=== PATIENT | female | born 1940 | race Caucasian/White ===

== ENCOUNTER 2017-08-12 14:33 | Emergency (ER) | payer OTHER ==
[2017-08-12 14:39] VITALS: PULSE 75; RESP 18
--- NOTE | 2017-08-12 14:48 | CPEKG ---
Heart Rate: 72 RR Interval: 833 P-R Interval: 134 QRSD Interval: 80 QT Interval: 432 QTC Interval: 473 P [place]: 57 QRS [place]: 73 T Wave [place]: 46 EKG Severity - NORMAL ECG - EKG Impression: SINUS RHYTHM Electronically Signed By: Junior Gillespie 15-Aug-2017 17:49:43
[2017-08-12] MEDS ORDERED: NS 500 ML IV ONE (14:59)
--- NOTE | 2017-08-12 15:04 | EDPHY ---
HPI/HX/ROS/PE/MDM Narrative: CHIEF COMPLAINT: "Flu-like symptoms" HPI: This patient is a 77 year old female arriving with her family complaining of one week history of flu-like symptoms. Last Thursday or , she developed body aches and productive cough with blood-tinged sputum. Yesterday and today, she has felt lightheaded and experienced chest pressure, dizziness, nausea which have worsened today. She endorses low grade fever Thursday which has since resolved. She has also had difficulty sleeping due to anxiousness, shakiness, and an inability to get comfortable. She generally receives her healthcare at [facility] and vised the urgent care there earlier today. Staff at triage recommended she present to the emergency department for further evaluation. She denies shortness of breath, leg pain or swelling, vomiting, diarrhea, abdominal pain, urinary complaints, or other associated symptoms. She did not receive a flu shot this year. REVIEW OF SYSTEMS: Aside from elements discussed in the HPI, a comprehensive 10-point review of systems was reviewed and is negative. PMH: Bursitis. Diverticulitis. SOCIAL HISTORY: Lives in [place]. Family at bedside. Retired. PHYSICAL EXAM: General:Patient is alert, in no acute distress. ENT:Eyes are normal to inspection. ENT inspection normal. Neck: Normal inspection. Full range of motion. Respiratory:No respiratory distress. Breath sounds normal bilaterally. Cardiovascular: Regular rate and rhythm. Strong peripheral pulses. Normal cap refill. Abdomen:The abdomen is nontender to palpation. There are no peritoneal signs. There are normal bowel sounds. Back: Normal to inspection. No tenderness to palpation. Skin: Normal color. No rash. Warm and dry. Extremities: Normal appearance. Full range of motion. Neuro: Oriented x3. Normal motor function. Normal sensory function. ED Course: 77 year old female presents with one week history of body aches, cough, lightheadedness, and fever. Exam unremarkable, lungs clear to auscultation. IV established. Plan for chest x-ray, EKG, labs including CBC, BMP, Troponin, flu swab. I suspect a disease process such as influenza rather than a cardiac process at this point. Administered 500mL IV NS. Patient is positive for Influenza A. Labs otherwise unremarkable. Troponin negative. Chest x-ray negative for acute processes. 16:45 Reassessed patient, discussed results. Plan to discharge home in good condition. Follow up and return precautions discussed. The patient and her family are comfortable with this plan. MDM: This patient presents with signs and symptoms of influenza, confirmed with flu PCR. There was mention of chest pain, but this seems like a minor component of the patient's presentation and is related to coughing. ECG and troponin are negative. The patient has had symptoms for 4-5 days so is outside window for antivirals. She is mentating at baseline and vitals are normal. I think she is appropriate for outpatient management. - Data Points Laboratory Results: Laboratory Results 08/12/17 14:57 08/12/17 14:57 08/12/17 08/12/17 08/12/17 15:25 14:57 14:57 WBC 2.97 10^3/uL L 10^3/uL (3.80-9.50) RBC 4.42 10^6/uL 10^6/uL (4.18-5.33) Hgb 13.7 g/dL g/dL (12.6-16.3) Hct 40.3 % % (38.0-47.0) MCV 91.2 fL fL (81.5-99.8) MCH 31.0 pg pg (27.9-34.1) MCHC 34.0 g/dL g/dL (32.4-36.7) RDW 12.9 % % (11.5-15.2) Plt Count 153 10^3/uL 10^3/uL (150-400) MPV 11.0 fL fL (8.7-11.7) Neut % (Auto) 49.9 % % (39.3-74.2) Lymph % (Auto) 38.4 % % (15.0-45.0) [place] % (Auto) 10.8 % % (4.5-13.0) Eos % (Auto) 0.3 % L % (0.6-7.6) Baso % (Auto) 0.3 % % (0.3-1.7) Nucleat RBC Rel Count 0.0 % % (0.0-0.2) Absolute Neuts (auto) 1.48 10^3/uL L 10^3/uL (1.70-6.50) Absolute Lymphs (auto) 1.14 10^3/uL 10^3/uL (1.00-3.00) Absolute Monos (auto) 0.32 10^3/uL 10^3/uL (0.30-0.80) Absolute Eos (auto) 0.01 10^3/uL L 10^3/uL (0.03-0.40) Absolute Basos (auto) 0.01 10^3/uL L 10^3/uL (0.02-0.10) Absolute Nucleated RBC 0.00 10^3/uL 10^3/uL (0-0.01) Immature Gran % 0.3 % % (0.0-1.1) Immature Gran # 0.01 10^3/uL 10^3/uL (0.00-0.10) Sodium 141 mEq/L mEq/L (134-144) Potassium 4.0 mEq/L mEq/L (3.5-5.2) Chloride 104 mEq/L mEq/L (97-110) Carbon Dioxide 25 mEq/l mEq/l (22-31) Anion Gap 12 mEq/L mEq/L (8-16) BUN 14 mg/dL mg/dL (7-23) Creatinine 0.7 mg/dL mg/dL (0.6-1.0) Estimated GFR > 60 Glucose 99 mg/dL mg/dL (70-100) Calcium 9.0 mg/dL mg/dL (8.5-10.4) Troponin I < 0.012 ng/mL ng/mL (0.000-0.034) Nasal Influenza A PCR FLU A DETECTED H (NEGATIVE) Nasal Influenza B PCR NEGATIVE FOR FLU B (NEGATIVE) Medications Given: Discontinued Medications Sodium Chloride (Ns) 500 mls @ 0 mls/hr IV EDNOW ONE; Wide Open PRN Reason: Protocol Stop: 08/12/17 15:00 Last Admin: 08/12/17 15:21 Dose: 500 mls General Time Seen by Provider: 08/12/17 14:48 Initial Vital Signs: Initial Vital Signs Temperature (C) 37 C 08/12/17 14:37 Heart Rate 75 08/12/17 14:37 Respiratory Rate 18 08/12/17 14:37 Blood Pressure 176/96 H 08/12/17 14:37 O2 Sat (%) 96 08/12/17 14:37 O2 Delivery Mode Room Air O2 (L/minute) 2 Allergies/Adverse Reactions: No Known Allergies Allergy (Verified 08/12/17 14:36) Home Medications: Medication Instructions Recorded NK [No Known Home Meds] 08/12/17 Departure - Departure Disposition: Home, Routine, Self-Care Clinical Impression: Influenza A Condition: Good Instructions: Influenza (ED) Additional Instructions: 1. Follow-up with your primary doctor within 72 hours. 2. Return to the Emergency Department for uncontrollable fever, chest pain, shortness of breath, increasing pain or other worsening of condition. Referrals: Irma Ang MD [Primary Care Provider] - As per Instructions Report Scribed for: Morgan Nair Report Scribed by: Radha Sorensen Date of Report: 08/12/17 Time of Report: 15:04 Physician Review and Approval Statement: Portions of this note were transcribed by an ED scribe. I personally performed the history, physical exam, and medical decision making; and confirm the accuracy of the information in the transcribed note.
[2017-08-12 15:10] LABS: % IMMATURE GRANULYOCYTES 0.3 % (0.0-1.1); ABSOLUTE IMMATURE GRANULOCYTES 0.01 10^3/uL (0.00-0.10); ADD DIFF? NO; ADD MORPH? NO; ADD SCAN? NO; ATYPICAL LYMPHOCYTE FLAG 80 (0-99); FRAGMENT RBC FLAG 0 (0-99); HEMATOCRIT 40.3 % (38.0-47.0); HEMOGLOBIN 13.7 g/dL (12.6-16.3); LEFT SHIFT FLG 0 (0-99); LIPEMIA HEMOLYSIS FLAG 90 (0-99); MEAN CELL VOLUME 91.2 fL (81.5-99.8); PLATELET CLUMPS FLAG 0 (0-99); PLATELET COUNT 153 10^3/uL (150-400); RED BLOOD CELL COUNT 4.42 10^6/uL (4.18-5.33); RED CELL DISTRIBUTION WIDTH 12.9 % (11.5-15.2)
[2017-08-12 15:20] LABS: ANION GAP 12 mEq/L (8-16); CARBON DIOXIDE 25 mEq/l (22-31); CHLORIDE 104 mEq/L (97-110); CREATININE 0.7 mg/dL (0.6-1.0); GLOMERULAR FILTRATION RATE > 60; GLUCOSE 99 mg/dL (70-100); SODIUM 141 mEq/L (134-144)
[2017-08-12 15:32] LABS: TROPONIN I < 0.012 ng/mL (0.000-0.034)
[2017-08-12 16:37] LABS: PRINT OR CALL CRITICALS TECH CALL
[2017-08-12 17:13] VITALS: BP 151/63; TEMP 97.7; O2SAT 91
== END 2017-08-12 17:13 | disposition home or self-care (01) ==
DX: J10.1 Influenza due to other identified influenza virus with other respiratory manifestations (principal); E86.9 Volume depletion, unspecified